=== PATIENT | female | born 1935 ===

== ENCOUNTER → 2018-02-22 17:28 | Outpatient (REF) | payer MEDICARE, SELFPAY | LOC: LAB 17:28 | PROVIDERS: PCP Family Medicine; Visit Provider Physician Assistant | DX: Z48.817 Encounter for surgical aftercare following surgery on the skin and subcutaneous tissue (principal) | CPT/HCPCS: 87070; 87075; 87077; 87147; 87186; 87205 ==

== ENCOUNTER → 2018-03-09 18:43 | Outpatient (REF) | payer MEDICARE, SELFPAY | LOC: LAB 18:43 | PROVIDERS: PCP Family Medicine; Visit Provider Dermatology MOHS-Micrographic Surgery | DX: Z48.817 Encounter for surgical aftercare following surgery on the skin and subcutaneous tissue (principal) | CPT/HCPCS: 87070; 87075; 87205 ==